=== PATIENT | female | born 1945 | race Caucasian/White ===

== ENCOUNTER 2017-04-09 19:55 | Emergency (ER) | payer OTHER ==
[~2017-04-09 19:55] MED LIST: ATENOLOL25 MG PO; BUPROPION HCL100 M1 PO; FOL1 PO; FOLIC ACID1 MG PO; FUROSEMIDE20 MG PO; HUMERA; L20 PO; MAGNESIUM OXID400 MG PO; MAX PO; MET2.5 PO; MORPHINE SULFAT30 M2 PO; MOT800 PO; MOTRIN800 MG PO; NITROFURANTOIN100 M3 PO; OMEPRAZOLE40 M1 PO; OSCD PO; OYSCO D PO; PER5 PO; PRI20 PO; RENAL CAPS1 SGL PO; SIMVASTATIN20 M1 PO; SUL500 PO; TRIAMTERENE AND1 TA1 PO; UNK BP MED; XELJANZ5 MG PO; ZIT250; ZOC20 PO; [UNRECOGNIZED DRUG - OTHER]; [UNRECOGNIZED DRUG - OTHER] PV
[2017-04-09 21:21] LABS: CALCIUM 8.9 mg/dL (8.5-10.1); CARBON DIOXIDE 32.6 mmol/L (21-32); CHLORIDE SERUM 99 mmol/L (98-107); CREATININE SERUM 0.8 mg/dL (0.6-1.0); GLUCOSE SERUM 124 mg/dL (74-106); SODIUM SERUM 138 mmol/L (136-145)
[2017-04-09 21:28] LABS: ALBUMIN 3.6 g/dL (3.4-5.0); ALKALINE PHOSPHATASE 66 U/L (46-116); ALT/SGPT 22 U/L (14-59); AST/SGOT 15 U/L (15-37); BILIRUBIN TOTAL 0.45 mg/dL (0.20-1.00); TOTAL PROTEIN, SERUM 7.7 g/dL (6.4-8.2)
[2017-04-09 21:34] LABS: BASOPHIL % 0.5 % (0-2); PLATELET COUNT 283 x10^3mcL (130-400)
[2017-04-09 21:35] LABS: RED CELL DISTRIBUTION WIDTH 15.3 % (11.5-14.5)
[2017-04-10 00:11] VITALS: BP 164/73
== END 2017-04-10 00:11 | disposition home or self-care (01) ==
LOC: ED 19:55
PROVIDERS: Emergency Medicine
DX: R51 Headache (principal); G89.29 Other chronic pain; I10 Essential (primary) hypertension; R42 Dizziness and giddiness; M06.9 Rheumatoid arthritis, unspecified; Z90.710 Acquired absence of both cervix and uterus; Z88.0 Allergy status to penicillin
CPT/HCPCS: 83880; Q0162